=== PATIENT | male | born 1970 | race Hispanic/Latino ===

== ENCOUNTER 2018-10-16 18:30 | Observation (INO) | payer OTHER ==
[~2018-10-16] VITALS: Ht 165.1 cm; Wt 74.7 kg
[2018-10-16 19:33] LABS: BASOPHILS % (AUTO) 0.9 % (0.0-5.0); EOSINOPHILS % (AUTO) 1.9 % (0.0-8.0); HEMATOCRIT 43.1 % (42-54); LYMPHOCYTES % (AUTO) 37.8 % (21.0-51.0); MEAN CORPUSCULAR HEMOGLOBIN 30.9 pg (27.0-33.0); MEAN CORPUSCULAR VOLUME 90.9 fL (79-99); NEUTROPHILS % (AUTO) 52.4 % (40.0-77.0); NUCLEATED RED BLOOD CELLS 0.2 % (0.0-0.19); PLATELET COUNT (AUTO) 189 K/uL (130-400); RED BLOOD CELL COUNT(AUTO) 4.74 MIL/uL (4.50-6.20); RED CELL DISTRIBUTION WIDTH 13.5 % (11.0-15.5); WHITE BLOOD COUNT (AUTO) 7.6 K/uL (4.8-10.8)
[2018-10-16 19:47] LABS: CREATININE 0.9 mg/dL (0.5-1.5); POTASSIUM 3.3 mmol/L (3.5-5.1)
[2018-10-16 19:51] LABS: ALBUMIN 3.6 g/dL (3.5-5.0); BILIRUBIN,TOTAL 0.4 mg/dL (0.2-1.0); TOTAL PROTEIN, SERUM 6.8 g/dL (6.0-8.3)
[2018-10-16] MEDS ORDERED: ASPIRIN 81MG TAB.CHEW ONE (21:35)
[2018-10-16] MEDS ORDERED: LIDOCAINE HCL-MPF 1% 2ML VIAL IVP PRN (22:45)
[2018-10-16] MEDS ORDERED: ACETAMINOPHEN 325 MG TAB PO PRN ×2 (22:45)
[2018-10-16] MEDS ORDERED: LORAZEPAM 2 MG/ML 1 ML VIAL IVP PRN (22:45)
[2018-10-16] MEDS ORDERED: MORPHINE SULFATE 4 MG/1ML SYG IV PRN (22:45)
[2018-10-16] MEDS ORDERED: POTASSIUM CHLORIDE 10MEQ/100ML 100 ML IV PRN (22:45)
[2018-10-16] MEDS ORDERED: POTASSIUM CHLORIDE 10% ELIXIR 20 MEQ/15 ML UDCUP PO PRN (22:45)
[2018-10-16] MEDS ORDERED: ONDANSETRON HCL 4 MG/2 ML VIAL IV PRN (22:45)
[2018-10-16] MEDS ORDERED: MORPHINE SULFATE 2 MG/ML 1ML SYG IV PRN (22:45)
[2018-10-16] MEDS ORDERED: CEFTRIAXONE SODIUM 2 GM VIAL IVP SCH (23:00)
[2018-10-16 23:20] VITALS: BP 125/80
[2018-10-16] MEDS ORDERED: OMEP20CA10 PO (23:55)
[2018-10-16] MEDS ORDERED: DICY10CA13 PO (23:55)
[2018-10-17 00:43] LABS: CREATINE KINASE, TOTAL 107 U/L (21-232); MYOGLOBIN 53 ng/mL (10-92); TROPONIN I < 0.04 ng/mL (0.00-0.06)
[2018-10-17] MEDS: POTASSIUM CHLORIDE 20 MEQ ERTAB PO PRN ×3 (01:53→06:10)
[2018-10-17] MEDS: NITROGLYCERIN 1GM/1 INCH PACKET TD SCH ×2 (01:53→05:52)
[2018-10-17 03:58] VITALS: BP 93/53
[2018-10-17 05:09] LABS: CREATINE KINASE, TOTAL 95 U/L (21-232); MYOGLOBIN 35 ng/mL (10-92); TROPONIN I < 0.04 ng/mL (0.00-0.06)
[2018-10-17 07:54] LABS: CREATINE KINASE, TOTAL 86 U/L (21-232); MYOGLOBIN 45 ng/mL (10-92); TROPONIN I < 0.04 ng/mL (0.00-0.06)
[2018-10-17] MEDS ORDERED: BUPR150T8 PO (07:59)
[2018-10-17] MEDS ORDERED: ASPI-555 PO (07:59)
[2018-10-17 08:00] VITALS: BP 102/66
[2018-10-17] MEDS ORDERED: FAMOTIDINE/PF 20 MG/2 ML VIAL IV SCH (09:00)
[2018-10-17] MEDS ORDERED: NICOTINE 14 MG/ 24 HR PATCH TD SCH (09:00)
[2018-10-17] MEDS ORDERED: ENOXAPARIN SODIUM 30 MG/0.3 ML SQ SCH (09:00)
[2018-10-17] MEDS ORDERED: ASPIRIN 325 MG TABLET PO SCH (09:00)
--- NOTE | 2018-10-17 10:23 | NUR ---
CALL TO DR. MARX/EKG T/C PLACED TO DR. MARX TO INFORM HIM THAT EKG THAT WAS SCHEDULED AT 2300 LAST NIGHT WAS NOT DONE, NO FURTHER ORDERS.
--- NOTE | 2018-10-17 10:40 | NUR ---
PT DISCHARGED HOME USING TEACH BACK TECHNIQUE RE; NEW MEDS, HOME MEDS, S/S TO WATCH FOR AND WHEN TO CALL MD OR 911. AAOX3, DENIES ANY CHEST PAIN, NO DISTRESS, IV OUT INTACT, TELE REMOVED. WILL FOLLOW UP WITH PRIMARY DOCTOR FOR PLANS TO A REFERRAL TO A IT SECURITY CONSULTING DIRECTOR. PATIENT IS TO CALL 911 IF SHORTNESS OF BREATH OR CHEST PAIN DOES NOT RESOLVE WITH REST.
== END 2018-10-17 11:20 | disposition home or self-care (01) ==
LOC: EDH 18:30 → INTOOBSV 20:55 → EDHIP 20:55 → 4BH 22:25
PROVIDERS: ADMIT Internal Medicine; ATTEND Internal Medicine
DX: I20.0 Unstable angina (principal); K21.9 Gastro-esophageal reflux disease without esophagitis; F17.210 Nicotine dependence, cigarettes, uncomplicated; Z79.899 Other long term (current) drug therapy
CPT/HCPCS: 36415 ×2; 71045; 80053; 82550 ×3; 83874 ×3; 84484 ×4; 85025; 93005 ×2; 99284; G0378 ×14; J0696

== ENCOUNTER 2020-11-22 10:37 | Emergency (ER) | payer OTHER ==
[~2020-11-22] VITALS: Ht 165.1 cm; Wt 77.6 kg
[~2020-11-22 10:37] MED LIST: ASPI-556 PO; BUPR150T8 PO; DICY10CA13 PO; OMEP20CA12 PO
[2020-11-22 10:42] VITALS: BP 111/60
[2020-11-22] MEDS ORDERED: ASPIRIN 325 MG TABLET PO SCH (10:45)
[2020-11-22 11:22] LABS: BASOPHILS % (AUTO) 0.5 % (0.0-5.0); EOSINOPHILS % (AUTO) 1.8 % (0.0-8.0); HEMATOCRIT 47.3 % (42-54); LYMPHOCYTES % (AUTO) 28.3 % (21.0-51.0); MEAN CORPUSCULAR HEMOGLOBIN 30.5 pg (27.0-33.0); MEAN CORPUSCULAR HGB CONC 33.8 g/dL (32.0-36.0); MEAN CORPUSCULAR VOLUME 90.3 fL (79-99); MONOCYTES % (AUTO) 6.9 % (3.0-13.0); NEUTROPHILS % (AUTO) 61.4 % (40.0-77.0); PLATELET COUNT (AUTO) 195 K/uL (130-400); RED BLOOD CELL COUNT(AUTO) 5.24 MIL/uL (4.50-6.20); RED CELL DISTRIBUTION WIDTH 13.2 % (11.0-15.5); WHITE BLOOD COUNT (AUTO) 9.5 K/uL (4.8-10.8)
[2020-11-22 11:33] LABS: INR 0.96 (0.85-1.15); PROTHROMBIN TIME 10.5 SEC (9.6-11.6)
[2020-11-22 11:44] VITALS: BP 112/64
[2020-11-22 11:44] LABS: ALANINE AMINOTRANSFERASE 28 U/L (12-78); ALBUMIN 3.8 g/dL (3.5-5.0); ASPARTATE AMINOTRANSFERASE 20 U/L (10-37); BILIRUBIN,TOTAL 0.5 mg/dL (0.2-1.0); CARBON DIOXIDE 29 mmol/L (21-32); CHLORIDE 106 mmol/L (101-111); CREATINE KINASE, TOTAL 82 U/L (21-232); CREATININE 0.8 mg/dL (0.5-1.5); GLOMERULAR FILTR. RATE CALC 109 mL/min (>60); GLUCOSE,RANDOM 103 mg/dL (70-105); MYOGLOBIN 42 ng/mL (10-92); POTASSIUM 3.6 mmol/L (3.5-5.1); SODIUM SERUM 140 mmol/L (136-145); TOTAL PROTEIN, SERUM 7.2 g/dL (6.0-8.3); TROPONIN I < 0.04 ng/mL (0.00-0.06); UREA NITROGEN, BLOOD 13 mg/dL (7-18)
[2020-11-22] MEDS ORDERED: FAMOTIDINE 20MG TAB PO STA (13:12)
[2020-11-22 14:13] VITALS: BP 120/64
[2020-11-22] MEDS ORDERED: FAMOTIDINE 20MG TAB ONE (14:44)
== END 2020-11-22 15:26 | disposition home or self-care (01) ==
LOC: EDH 10:37
DX: R07.89 Other chest pain (principal); R00.1 Bradycardia, unspecified; R10.9 Unspecified abdominal pain; E11.9 Type 2 diabetes mellitus without complications; I10 Essential (primary) hypertension; K21.9 Gastro-esophageal reflux disease without esophagitis; Z98.890 Other specified postprocedural states
CPT/HCPCS: 36415; 71045; 80053; 82550; 83735; 83874; 84484; 85025; 85610; 93005

== ENCOUNTER → 2022-09-14 | Outpatient (CLI) | payer OTHER ==
[~2022-09-14] MED LIST changes: +BUPR-113 PO; -BUPR150T8 PO; +PANT40TA55 PO
== END | disposition home or self-care (01) ==
LOC: RAH 08:35
PROVIDERS: ATTEND Family Medicine
DX: M54.6 Pain in thoracic spine (principal)
CPT/HCPCS: 72070

== ENCOUNTER → 2023-02-13 | Outpatient (CLI) | payer OTHER ==
[~2023-02-13] MED LIST changes: +DICY-20 PO; -DICY10CA13 PO
== END | disposition home or self-care (01) ==
LOC: RAH 09:07
PROVIDERS: ATTEND Family Medicine
DX: M41.84 Other forms of scoliosis, thoracic region (principal); M54.6 Pain in thoracic spine
CPT/HCPCS: 71046; 72070